=== PATIENT | male | born 1950 | race Two or more races ===

== ENCOUNTER → 2024-08-12 | Outpatient (CLI) | payer MEDICARE, SELFPAY ==
--- NOTE | 2024-08-12 15:29 | XR_ITS ---
Examination: Testicular sonography complete Technique: Grayscale sonographic images testes, assessment arterial inflow venous outflow Doppler spectral analysis carful analysis Exam date and time: August 12, 2024 1559 hrs. Indications: Testicular pain with hematuria beginning 3 days ago Findings: Right testis 4.3 cm epididymis 1.8 cm Right epididymal cyst 4 mm Moderate varicocele Arterial flow testicle. No testicular mass Mild hydrocele Left testis 3.6 cm epididymis 11 mm Arterial flow testicle. No testicular mass Mild hydrocele Bilateral testicular microlithiasis Impression: No testicular torsion or testicular mass Small benign right epididymal cyst Moderate right varicocele Bilateral testicular microlithiasis
== END | disposition home or self-care (01) ==
LOC: SDIM 15:17
PROVIDERS: PCP Nurse Practitioner Family; Referring Provider Nurse Practitioner Family; Visit Provider Nurse Practitioner Family
DX: N50.89 Other specified disorders of the male genital organs (principal); I86.1 Scrotal varices; N44.2 Benign cyst of testis
CPT/HCPCS: 76870

== ENCOUNTER → 2024-08-13 | Outpatient (CLI) | payer MEDICARE, SELFPAY ==
--- NOTE | 2024-08-13 12:07 | XR_ITS ---
Examination: CT abdomen and pelvis without contrast. Coronal 3-D reconstructions. Sagittal 2-D reconstructions. Date and time of exam:August 13, 2024 1220 hours INDICATIONS: Hematuria laboratory examination this week CTDI: vol (mGy): 7.47 DLP: (mGycm): 159 Technique: Axial images of the abdomen have been obtained, 3 mm slice thickness Intravenous contrast material has not been administered. Low dose protocols were performed. One or more of the following dose reduction techniques were used; automated exposure control, adjustment of the mA and/or KV according to patient size, use of iterative reconstruction technique. Findings: No focal liver lesions excepting right lobe liver cyst 30 mm Absent gallbladder Spleen not enlarged No pancreatic mass Posterior right renal cyst 1.7 cm 1 mm nonobstructing left renal calculus 2 mm lower pole right renal calculus No hydronephrosis or ureteral calculi No pericecal inflammatory change No bowel obstruction No diverticulitis Mild thickening of urinary bladder wall up to 4 mm Significant prostatomegaly, AP dimension 5 cm Prominent lumbar spondylosis IMPRESSION: Tiny bilateral nonobstructing renal calculi No hydronephrosis or ureteral calculi Mild thickening of urinary bladder wall, differential would include cystitis
== END | disposition home or self-care (01) ==
LOC: SCAT 11:58
PROVIDERS: PCP Nurse Practitioner Family; Referring Provider Nurse Practitioner Family; Visit Provider Nurse Practitioner Family
DX: N20.0 Calculus of kidney (principal); N32.89 Other specified disorders of bladder
CPT/HCPCS: 74176

== ENCOUNTER → 2024-09-15 | Outpatient (CLI) | payer MEDICARE, SELFPAY ==
--- NOTE | 2024-09-15 | XR_ITS ---
Examination: Testicular sonography complete TECHNIQUE: Grayscale sonographic images testes, assessment arterial inflow venous outflow Doppler spectral analysis carful analysis Date and time: September 15, 2024 1113 hours Comparison August 12, 2024 INDICATIONS: Bilateral testicular pain one month FINDINGS: Right testis 3.8 cm epididymis 20 mm 4 mm right epididymal cyst Right epididymis cystic appendage 5 mm Prominent varicocele medial to the testicle Arterial flow testicle. No testicular mass Left testis 4.4 cm epididymis 12 mm Arterial flow testicle. No testicular mass 3 mm left epididymal cyst Prominent varicocele medial to the testicle Bilateral testicular microlithiasis IMPRESSION: No testicular torsion or testicular mass Prominent bilateral varicoceles Testicular microlithiasis
== END | disposition home or self-care (01) ==
PROVIDERS: PCP Nurse Practitioner Family; Referring Provider Nurse Practitioner Family; Visit Provider Nurse Practitioner Family
DX: I86.1 Scrotal varices (principal); N50.89 Other specified disorders of the male genital organs
CPT/HCPCS: 76870

== ENCOUNTER → 2024-09-18 | Outpatient (BNVA) | payer MEDICARE, SELFPAY | END | disposition home or self-care (01) | PROVIDERS: PCP Nurse Practitioner Family; Referring Provider Nurse Practitioner Family; Visit Provider Urology | DX: N40.1 Benign prostatic hyperplasia with lower urinary tract symptoms (principal); N13.8 Other obstructive and reflux uropathy; N40.2 Nodular prostate without lower urinary tract symptoms; R31.0 Gross hematuria; I25.10 Atherosclerotic heart disease of native coronary artery without angina pectoris; I12.9 Hypertensive chronic kidney disease with stage 1 through stage 4 chronic kidney disease, or unspecified chronic kidney disease; N18.2 Chronic kidney disease, stage 2 (mild); I48.91 Unspecified atrial fibrillation | CPT/HCPCS: 81003; 99203; G0463 ==

== ENCOUNTER → 2024-09-18 | Outpatient (CLI) | payer MEDICARE, SELFPAY ==
[2024-09-18 14:28] LABS: Prostate Specific Antigen 4.72 ng/mL (0-4.00)
== END | disposition home or self-care (01) ==
LOC: COPL 12:43
PROVIDERS: PCP Physician Assistant; Referring Provider Urology; Visit Provider Urology
DX: R97.20 Elevated prostate specific antigen [PSA] (principal)
CPT/HCPCS: 36415; 84153

== ENCOUNTER → 2024-10-13 | Outpatient (BNVA) | payer MEDICARE, SELFPAY | END | disposition home or self-care (01) | PROVIDERS: PCP Nurse Practitioner Family; Referring Provider Nurse Practitioner Family; Visit Provider Urology | DX: N42.89 Other specified disorders of prostate (principal); N40.1 Benign prostatic hyperplasia with lower urinary tract symptoms; N13.8 Other obstructive and reflux uropathy; I10 Essential (primary) hypertension; I48.91 Unspecified atrial fibrillation | CPT/HCPCS: 55700; 76942; 81003; 96372; A4649; J1580; J3490; A9270 ==

== ENCOUNTER → 2024-10-28 | Outpatient (CLI) | payer MEDICARE, SELFPAY ==
--- NOTE | 2024-10-28 11:30 | XR_ITS ---
Examination: CT abdomen with intravenous contrast CT pelvis with intravenous contrast 2-D coronal reconstructions 2-D sagittal reconstructions Date and time of exam:October 28, 2024 1211 hours Comparison August 13, 2024 INDICATIONS: Diagnosis benign prostatic hyperplasia with lower urinary tract symptoms, difficulty urinating, history kidney stones. CTDI: vol (mGy) 15 DLP: (mGycm) 917 Technique: Multiple axial sections of the abdomen and pelvis have been obtained. 64 slice high-resolution scanner used. 3 mm axial sections have been obtained, post intravenous injection 60 cc [id number] 2-D sagittal, coronal reconstructions obtained. Low dose protocols were performed. One or more of the following dose reduction techniques were used; automated exposure control, adjustment of the mA and/or KV according to patient size, use of iterative reconstruction technique. 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 Millimeter right renal calculus, no hydronephrosis or ureteral calculi Moderate prostatomegaly Suspicious for 6 mm enhancing prostate nodule, consider transrectal prostate sonography follow-up
[2024-10-28 11:45] LABS: Blood Urea Nitrogen 20 mg/dL (9-23); Creatinine (Component) 1.3 mg/dL (0.6-1.3); eGFR 58 See Note
== END | disposition home or self-care (01) ==
LOC: CCTX 10:10
PROVIDERS: PCP Nurse Practitioner Family; Referring Provider Urology; Visit Provider Urology
DX: N20.0 Calculus of kidney (principal); N40.0 Benign prostatic hyperplasia without lower urinary tract symptoms
CPT/HCPCS: 36415; 74177; 82565; 84520; A4649; Q9967

== ENCOUNTER → 2025-02-23 | Outpatient (CLI) | payer MEDICARE, SELFPAY ==
[2025-02-26 22:06] LABS: PSA, Free 0.92 ng/mL; PSA, Total 3.3 ng/mL (< OR = 4.0)
[2025-02-27 06:34] LABS: PSA, % Free 28 % (calc) (>25)
== END | disposition home or self-care (01) ==
LOC: COPL 13:49
PROVIDERS: PCP Nurse Practitioner Family; Referring Provider Urology; Visit Provider Urology
DX: N40.1 Benign prostatic hyperplasia with lower urinary tract symptoms (principal)
CPT/HCPCS: 36415; 84153; 84154

== ENCOUNTER → 2025-02-23 | Outpatient (BNVA) | payer MEDICARE, SELFPAY | END | disposition home or self-care (01) | PROVIDERS: PCP Nurse Practitioner Family; Referring Provider Nurse Practitioner Family; Visit Provider Urology | DX: N40.1 Benign prostatic hyperplasia with lower urinary tract symptoms (principal); N13.8 Other obstructive and reflux uropathy; R97.20 Elevated prostate specific antigen [PSA]; I10 Essential (primary) hypertension | CPT/HCPCS: 81003; 99212; G0463 ==

== ENCOUNTER → 2025-04-09 | Outpatient (BNVA) | payer MEDICARE, SELFPAY | END | disposition home or self-care (01) | PROVIDERS: PCP Nurse Practitioner Family; Referring Provider Nurse Practitioner Family; Visit Provider Urology | DX: N40.1 Benign prostatic hyperplasia with lower urinary tract symptoms (principal); R39.12 Poor urinary stream; I10 Essential (primary) hypertension | CPT/HCPCS: 51741; 51798 ==